=== PATIENT | male | born 1985 ===

== ENCOUNTER 2018-12-31 08:55 | Observation (INO) | payer MEDICAID, OTHER ==
[2018-12-31 09:17] VITALS: BMI 29.2
--- NOTE | 2018-12-31 10:09 | ED PDOC ---
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 lower back pain x 1 day and rt. lower lateral abdomen lump x 1 week with no fall or trauma except been doing heavy lifting at work x 1 week. Rt. lower back pain, no fall or trauma, aching pain, aggravated by movement, had an episode of vomiting about 1 hour ago but resolved, radiating to the rt thigh, no numbness or tingling, no urinary or bowel incontinence or retention. Rt. lower abdomen swelling lump noted this early week after heavy lifting, no fever or chills, no headache or night sweat, eating and drinking well, last bowel movement today, no rash, no other medical o r psychological complaints. Past Medical History - Provider Review Nursing Documentation Reviewed: Yes - Infectious Disease Hx of Infectious Diseases: None - Psychiatric Hx Substance Use: No - Surgical History Hx Appendectomy: Yes - Anesthesia Hx Anesthesia: Yes Hx Anesthesia Reactions: No Family/Social History - Physician Review Nursing Documentation Reviewed: Yes Family/Social History: Unknown Family HX Smoking Status: Current Some Days Smoker Hx Alcohol Use: No Hx Substance Use: No Allergies/Home Meds Allergies/Adverse Reactions: Allergies No Known Allergies Allergy (Verified 12/31/18 09:37) Home Medications: Home Meds Medication Instructions Recorded Confirmed No Known Home Med 12/31/18 12/31/18 Review of Systems - Review of Systems Constitutional: absent: Fatigue, Fevers Eyes: absent: Vision Changes ENT: absent: Hearing Changes Respiratory: absent: SOB, Cough, Sputum, Wheezing Cardiovascular: absent: Chest Pain Gastrointestinal: Abdominal Pain (with lump). absent: Diarrhea, Nausea, Vomiting Musculoskeletal: Back Pain. absent: Arthralgias, Neck Pain, Joint Swelling, Myalgias Skin: absent: Rash, Pruritis Neurological: absent: Headache, Dizziness Psychiatric: absent: Anxiety, Depression, Suicidal Ideation Physical Exam Vital Signs Reviewed: Yes Vital Signs Temp Pulse Resp BP Pulse Ox 12/31/18 09:17 98.1 F 84 18 113/77 100 Temperature: Afebrile Blood Pressure: Normal Pulse: Regular Respiratory Rate: Normal Appearance: Positive for: Well-Appearing, Non-Toxic, Comfortable Pain Distress: Moderate Mental Status: Positive for: Alert and Oriented X 3 - Systems Exam Head: Present: Atraumatic, Normocephalic Pupils: Present: PERRL Extroacular Muscles: Present: EOMI Conjunctiva: Present: Normal Mouth: Present: Moist Mucous Membranes Neck: Present: Normal Range of Motion Respiratory/Chest: Present: Clear to Auscultation, Good Air Exchange. No: Respiratory Distress, Accessory Muscle Use Cardiovascular: Present: Regular Rate and Rhythm, Normal S1, S2. No: Murmurs Abdomen: Present: Tenderness (RLQ), Normal Bowel Sounds, Hernias (RLQ). No: Distention, Peritoneal Signs, Rebound, Guarding, McBurney's Point Tender, Rovsing's Sign Present Back: Present: Normal Inspection, Other (LS spine: +ttp and mild spasm noted on the rt. paraspinal muscle region, no midline tenderness or step off, no cva tenderness, SLR test negative, FROM without limitation but pain with lateral movement, sensation intact, motor 5/5, no saddling gait. ). No: CVA Tenderness, Midline Tenderness, Pain with Leg Raise, Decubitus Ulcer Upper Extremity: Present: Normal Inspection, Normal ROM, NORMAL PULSES, Neurovascularly Intact, Capillary Refill < 2s. No: Cyanosis, Edema, Deformity Lower Extremity: Present: Normal Inspection, NORMAL PULSES, Normal ROM, Neurovascularly Intact, Capillary Refill < 2 s. No: Edema, Deformity Neurological: Present: GCS=15, CN II-XII Intact, Speech Normal, Motor Func Grossly Intact, Normal Cerebellar Funct, Gait Normal, Memory Normal Skin: Present: Warm, Dry, Normal Color. No: Rashes Psychiatric: Present: Alert, Oriented x 3, Normal Insight, Normal Concentration Medical Decision Making ED Course and Treatment: 12/31/18 10:11 -Labs -CT abdomen and pelvis -IV toradol/valium -Observe and reassess 12/31/18 12:46 -Labs are nonsignificant -UA show no UTI -CT abdomen and pelvis There is a ventral abdominal wall hernia along the lateral edge of the right rectus muscle at the level of the iliac crests. The defect measures 2 cm. The herniated fat measures 3 x 5 x 7 cm. There is increased density within the fat which may represent inflammation or ischemic changes. -Pt. feels pain improved but the hernia is nonreducible, -I spoke to the resident buyer Dr. Mag Kumar, discussed about the case and CT result together, she will come evaluate the patient. 12/31/18 13:03 -General surgery team Dr. Mag Kumar, came to evaluated the patient, unable to reduced the hernia completely, recommend admission for surgical procedure. Paging hospitalist for admission now. 12/31/18 13:06 -I spoke to Dr. Kellie Faulkner, discussed about the case/consult, agreed to admit to her service with surgical team on the consult. I ordered the consult already. - RAD Interpretation Radiology Orders: 12/31/18 10:05 ABD & PELVIS IV CONTRAST ONLY [CT] Stat Date of service: 12/31/2018 PROCEDURE: CT Abdomen and Pelvis with contrast HISTORY: RL abdomen lump, hernia? COMPARISON: None. TECHNIQUE: Contrast dose: 100 cc of Omni 350 Radiation dose: Total exam DLP = 460.03 mGy-cm. This CT exam was performed using one or more of the following dose reduction techniques: Automated exposure control, adjustment of the mA and/or kV according to patient size, and/or use of iterative reconstruction technique. FINDINGS: LOWER THORAX: Unremarkable. LIVER: Unremarkable. No gross lesion or ductal dilatation. GALLBLADDER AND BILE DUCTS: Unremarkable. PANCREAS: Unremarkable. No gross lesion or ductal dilatation. SPLEEN: Unremarkable. ADRENALS: Unremarkable. No mass. KIDNEYS AND URETERS: Unremarkable. No hydronephrosis. No solid mass. VASCULATURE: Unremarkable. No aortic aneurysm. No aortic atherosclerotic calcification or mural plaque present. BOWEL: Unremarkable. No obstruction. No gross mural thickening. APPENDIX: Normal appendix. PERITONEUM: Unremarkable. No free fluid. No free air. There is a ventral abdominal wall hernia along the lateral edge of the right rectus muscle at the level of the iliac crests. The defect measures 2 cm. The herniated fat measures 3 x 5 x 7 cm. There is increased density within the fat which may represent inflammation or ischemic changes. LYMPH NODES: Unremarkable. No enlarged lymph nodes. BLADDER: Unremarkable. REPRODUCTIVE: Unremarkable. BONES: No acute fracture. OTHER FINDINGS: None. IMPRESSION: There is a ventral abdominal wall hernia along the lateral edge of the right rectus muscle at the level of the iliac crests. The defect measures 2 cm. The herniated fat measures 3 x 5 x 7 cm. There is increased density within the fat which may represent inflammation or ischemic changes. 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 Disposition/Present on Arrival - Present on Arrival Any Indicators Present on Arrival: No History of DVT/PE: No History of Uncontrolled Diabetes: No Urinary Catheter: No History of Decub. Ulcer: No History Surgical Site Infection Following: None - Disposition Have Diagnosis and Disposition been Completed?: Yes Diagnosis: Low back pain, Abdominal hernia Disposition: HOSPITALIZED Disposition Time: 13:07 Patient Plan: Admission, Observation Patient Problems: Current Active Problems Problem Status Onset Low back pain Acute Abdominal hernia Acute Condition: STABLE Referrals: FAMILY PROVIDER,NO [Primary Care Provider] - Follow up with primary Forms: [employer] ([place])
[2018-12-31 10:46] LABS: BASO # 0.03 K/mm3 (0.0-2.0); BASO % 0.3 % (0.0-3.0); EOS # 0.5 (0.0-0.7); HEMOGLOBIN 16.5 g/dL (14.0-18.0); LYMPH # 1.9 (1.2-3.4); LYMPH % 17.8 % (22.0-35.0); MEAN CELL VOLUME 94.7 fl (80.0-105.0); MEAN CORPUSCULAR HEMOGLOBIN 32.4 pg (25.0-35.0); MEAN CORPUSCULAR HGB CONC 34.2 g/dl (31.0-37.0); MEAN PLATELET VOLUME 8.8 fl (7.0-11.0); MONO # 0.4 (0.1-0.6); MONO % 3.3 % (1.0-6.0); RBC 5.1 10^6/uL (3.5-6.1); RED CELL DISTRIBUTION WIDTH 12.3 % (11.5-14.5); WHITE BLOOD COUNT 10.7 10^3/uL (4.5-11.0)
[2018-12-31 10:48] LABS: URINE BILIRUBIN NEGATIVE (NEGATIVE); URINE BLOOD NEGATIVE (NEGATIVE); URINE GLUCOSE (UA) NEGATIVE (NEGATIVE); URINE LEUKOCYTE ESTERASE NEGATIVE Leu/uL (NEGATIVE); URINE PROTEIN NEGATIVE mg/dL (<30 mg/dL); URINE UROBILINOGEN 0.2 E.U./dL (<1 E.U./dL)
[2018-12-31 10:50] LABS: ALB/GLOB RATIO 1.3 (1.1-1.8); ALBUMIN 4.4 g/dL (3.0-4.8); ALT/SGPT 44 U/L (7-56); AST/SGOT 41 U/L (17-59); BLOOD UREA NITROGEN 13 mg/dL (7-21); CALCIUM 10.1 mg/dL (8.4-10.5); GFR NON-AFRICAN AMERICAN > 60; LIPASE 103 U/L (23-300)
[2018-12-31 10:52] LABS: URINE APPEARANCE CLEAR (CLEAR); URINE COLOR YELLOW (YELLOW)
[2018-12-31] MEDS ORDERED: Iohexol 350 MG/100 ML VIAL ONE (10:57)
--- NOTE | 2018-12-31 12:15 | CT ---
Date of service: 12/31/2018 PROCEDURE: CT Abdomen and Pelvis with contrast HISTORY: RL abdomen lump, hernia? COMPARISON: None. TECHNIQUE: Contrast dose: 100 cc of Omni 350 Radiation dose: Total exam DLP = 460.03 mGy-cm. This CT exam was performed using one or more of the following dose reduction techniques: Automated exposure control, adjustment of the mA and/or kV according to patient size, and/or use of iterative reconstruction technique. FINDINGS: LOWER THORAX: Unremarkable. LIVER: Unremarkable. No gross lesion or ductal dilatation. GALLBLADDER AND BILE DUCTS: Unremarkable. PANCREAS: Unremarkable. No gross lesion or ductal dilatation. SPLEEN: Unremarkable. ADRENALS: Unremarkable. No mass. KIDNEYS AND URETERS: Unremarkable. No hydronephrosis. No solid mass. VASCULATURE: Unremarkable. No aortic aneurysm. No aortic atherosclerotic calcification or mural plaque present. BOWEL: Unremarkable. No obstruction. No gross mural thickening. APPENDIX: Normal appendix. PERITONEUM: Unremarkable. No free fluid. No free air. There is a ventral abdominal wall hernia along the lateral edge of the right rectus muscle at the level of the iliac crests. The defect measures 2 cm. The herniated fat measures 3 x 5 x 7 cm. There is increased density within the fat which may represent inflammation or ischemic changes. LYMPH NODES: Unremarkable. No enlarged lymph nodes. BLADDER: Unremarkable. REPRODUCTIVE: Unremarkable. BONES: No acute fracture. OTHER FINDINGS: None. IMPRESSION: There is a ventral abdominal wall hernia along the lateral edge of the right rectus muscle at the level of the iliac crests. The defect measures 2 cm. The herniated fat measures 3 x 5 x 7 cm. There is increased density within the fat which may represent inflammation or ischemic changes.
--- NOTE | 2018-12-31 13:52 | CP.PCM.HP ---
<Dany Juarez - Last Filed: 12/31/18 13:45> History of Present Illness - History of Present Illness History of Present Illness: Dany Juarez, PGY1 Hospital H&P This is a 33 year old male with PMH of appendectomy in 1995 presenting to the hospital for one week history of right sided abdominal pain and one day history of right lower back pain. 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 Pain worsened today, described as sharp, worsened with movement and associated with nausea and one episode of vomiting NBNB. Patient denies having similar symptoms in past. He has not tried anything for the pain. He denies fevers, headaches, dizziness, CP, SOB, diarrhea, constipation, urinary complaints, numbness and tingling. 12 point ROS noted here, otherwise unremarkable. PMH: denies SH: denies drinking and drugs, has smoked 1 pack per day for more than ten years Sx: appendectomy in 1995 Meds: denies All: denies FH: mom and dad have DM, HTN, HLD Present on Admission - Present on Admission Any Indicators Present on Admission: No Past Patient History - Infectious Disease Hx of Infectious Diseases: None - Past Social History Smoking Status: Heavy Smoker > 10 Cigarettes Daily - PSYCHIATRIC Hx Substance Use: No - SURGICAL HISTORY Hx Appendectomy: Yes - ANESTHESIA Hx Anesthesia: Yes Hx Anesthesia Reactions: No Meds Allergies/Adverse Reactions: Allergies Allergy/AdvReac Type Severity Reaction Status Date / Time No Known Allergies Allergy Verified 12/31/18 09:37 Physical Exam - Constitutional Appears: No Acute Distress - Head Exam Head Exam: ATRAUMATIC, NORMAL INSPECTION - Eye Exam Eye Exam: EOMI Pupil Exam: PERRL - ENT Exam ENT Exam: Mucous Membranes Moist - Neck Exam Neck exam: Positive for: Normal Inspection - Respiratory Exam Respiratory Exam: Clear to Auscultation Bilateral, NORMAL BREATHING PATTERN. absent: Accessory Muscle Use, Wheezes, Respiratory Distress - Cardiovascular Exam Cardiovascular Exam: REGULAR RHYTHM, +S1, +S2 - GI/Abdominal Exam GI & Abdominal Exam: Normal Bowel Sounds. absent: Firm, Guarding, Rigid Additional comments: RLQ protuberance and swelling appreciated. Tenderness appreciated with deep palpation to the RLQ - Extremities Exam Extremities exam: Positive for: normal inspection, pedal pulses present. Negative for: calf tenderness, tenderness - Back Exam Back exam: NORMAL INSPECTION Additional comments: Right sided T-T8 tenderness appreciated - Neurological Exam Neurological exam: Alert, CN II-XII Intact, Oriented x3 - Skin Skin Exam: Normal Color, Warm Results - Vital Signs Recent Vital Signs: Last Vital Signs Temp 98.1 F 12/31/18 09:17 Pulse 84 12/31/18 09:17 Resp 18 12/31/18 09:17 BP 113/77 12/31/18 09:17 Pulse Ox 100 12/31/18 09:17 - Labs Result Diagrams: 12/31/18 10:31 12/31/18 10:31 Labs: Laboratory Results - last 24 hr 12/31/18 12/31/18 12/31/18 10:25 10:31 10:31 WBC 10.7 RBC 5.10 Hgb 16.5 Hct 48.3 MCV 94.7 MCH 32.4 MCHC 34.2 RDW 12.3 Plt Count 298 MPV 8.8 Neut % (Auto) 73.6 H Lymph % (Auto) 17.8 L [place] % (Auto) 3.3 Eos % (Auto) 5.0 Baso % (Auto) 0.3 Lymph # (Auto) 1.9 [place] # (Auto) 0.4 Eos # (Auto) 0.5 Baso # (Auto) 0.03 Absolute Neuts (auto) 7.85 H Sodium 139 Potassium 4.4 Chloride 101 Carbon Dioxide 31 Anion Gap 12 BUN 13 Creatinine 0.9 Est GFR ( Amer) > 60 Est GFR (Non-Af Amer) > 60 Random Glucose 95 Calcium 10.1 Total Bilirubin 0.9 AST 41 ALT 44 Alkaline Phosphatase 61 Total Protein 7.8 Albumin 4.4 Globulin 3.4 Albumin/Globulin Ratio 1.3 Lipase 103 Urine Color Yellow Urine Appearance Clear Urine pH 7.0 Ur Specific [place] 1.015 Urine Protein Negative Urine Glucose (UA) Negative Urine Ketones Negative Urine Blood Negative Urine Nitrate Negative Urine Bilirubin Negative Urine Urobilinogen 0.2 Ur Leukocyte Esterase Negative Assessment & Plan - Assessment and Plan (Free Text) Assessment: This is a 33 year old male with PMH of appendectomy in 1995 presenting to the hospital for one week history of right sided abdominal pain and one day history of right lower back pain. Plan: Ventral abdominal wall hernia: -CTAP 12/31: There is a ventral abdominal wall hernia along the lateral edge of the right rectus muscle at the level of the iliac crests. The defect measures 2 cm. The herniated fat measures 3 x 5 x 7 cm. There is increased density within the fat which may represent inflammation or ischemic changes. -Surgery on consult, Dr. Matias -initial reduction failed -NPO after midnight -flexeril 5mg q8 prn -tylenol 650mg q6 prn -morphine 2 q4 prn Tobacco abuse -nicotine patch DVT PPX -SCD Patient seen and case discussed with attending, Ruben Harley <Chanell Faulkner R - Last Filed: 12/31/18 17:39> Results - Vital Signs Recent Vital Signs: Last Vital Signs Temp 98.1 F 12/31/18 09:17 Pulse 78 12/31/18 15:23 Resp 20 12/31/18 15:23 BP 116/69 12/31/18 15:23 Pulse Ox 99 12/31/18 15:23 - Labs Result Diagrams: 12/31/18 10:31 12/31/18 10:31 Labs: Laboratory Results - last 24 hr 12/31/18 12/31/18 12/31/18 10:25 10:31 10:31 WBC 10.7 RBC 5.10 Hgb 16.5 Hct 48.3 MCV 94.7 MCH 32.4 MCHC 34.2 RDW 12.3 Plt Count 298 MPV 8.8 Neut % (Auto) 73.6 H Lymph % (Auto) 17.8 L [place] % (Auto) 3.3 Eos % (Auto) 5.0 Baso % (Auto) 0.3 Lymph # (Auto) 1.9 [place] # (Auto) 0.4 Eos # (Auto) 0.5 Baso # (Auto) 0.03 Absolute Neuts (auto) 7.85 H Sodium 139 Potassium 4.4 Chloride 101 Carbon Dioxide 31 Anion Gap 12 BUN 13 Creatinine 0.9 Est GFR ( Amer) > 60 Est GFR (Non-Af Amer) > 60 Random Glucose 95 Calcium 10.1 Total Bilirubin 0.9 AST 41 ALT 44 Alkaline Phosphatase 61 Total Protein 7.8 Albumin 4.4 Globulin 3.4 Albumin/Globulin Ratio 1.3 Lipase 103 Urine Color Yellow Urine Appearance Clear Urine pH 7.0 Ur Specific [place] 1.015 Urine Protein Negative Urine Glucose (UA) Negative Urine Ketones Negative Urine Blood Negative Urine Nitrate Negative Urine Bilirubin Negative Urine Urobilinogen 0.2 Ur Leukocyte Esterase Negative Attending/Attestation - Attestation I have personally seen and examined this patient.: Yes I have fully participated in the care of the patient.: Yes I have reviewed all pertinent clinical information: Yes Notes (Text): Patient seen and examined by me with resident at approximately 1:35PM on 12/31/18 in the emergency room. Case including HPI, physical exam, and assessment and plan discussed with resident. Agree with above with following additions/corrections. Patient is a 33-year-old male with past medical history significant for appendicitis status post appendectomy that presented to the emergency room with swelling of the right lower quadrant area and pain in the right lower back radiating to the right thigh. Patient states that the swelling in the right lower quadrant of his abdomen started at the beginning of the week and this progressively gotten worse. He states he also started to have right lower back pain that started yesterday morning and became "unbearable" this morning. 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 Patient states that he used his tool belt and wore around the swollen area to see if that would help but it did not. Patient states that the low back pain is on the right side and is sharp and radiates down to his hamstrings. It is worse with movement. Patient did not try any medications for this at home. Patient states that the right lower quadrant abdominal pain is "squeezing" in nature and is worsened with movement and palpation. Patient states he did have an episode of associated nausea and vomiting this morning. Patient denies any diarrhea or con stipation. No fevers or chills. No headaches or dizziness. No dysuria. No chest pain or shortness of breath. 12 point review of systems reviewed by me. Please see above HPI, all other systems negative. Family history: Mother is alive and has diabetes, hypertension, hyperlipidemia. Alive and also has diabetes, hypertension, and hyperlipidemia. Allergies: NKDA Past medical history: Appendicitis Medications at home: Reviewed and denies taking anything. Physical exam: General: Awake and alert lying in bed in no acute distress. HEENT: Normocephalic, atraumatic. Extraocular muscles intact, pupils equal and reactive, no scleral icterus. Oropharynx is pink and moist. No pharyngeal erythema or exudate appreciated. Neck is supple. Hearing grossly intact. Ears and nose externally unremarkable. Cardiovascular: Regular rhythm. Normal S1, S2. No murmurs, rubs, or gallops appreciated Pulmonary: Normal respiratory effort. No rales or wheezing appreciated. Gastrointestinal: Soft. Positive ventral hernia right abdomen, tender to palpation. Positive bowel sounds all 4 quadrants. No guarding. Well-healed appendectomy scar right lower quadrant. Musculoskeletal: Moves all extremities. No calf tenderness. No edema appreciated. Positive paraspinal muscle tenderness lumbosacral spine on the right Central nervous system: AAOx3. CN 2-12 grossly intact. 5/5 muscle strength all extremities. Dermatologic: Skin warm and dry. Assessment and plan: Patient is a 33-year-old male with past medical history significant for appendicitis status post appendectomy that presented to the emergency room with swelling of the right lower quadrant area and pain in the right lower back radiating to the right thigh. 1. Right ventricle abdominal wall hernia. CT abdomen and pelvis per radiologist showed a ventral abdominal hernia along the lateral edge of the right rectus muscle at the level of the iliac crests, the defect measures 2 cm, herniated fat measures 3 x 5 x 7 cm, there is increased density within the fat which may represent inflammation or ischemic changes. Patient evaluated by surgical team in the emergency room. Unable to reduce hernia. Surgical team will reevaluate to try to reduce hernia versus surgical intervention. IV morphine as needed for pain. 2. Right low back pain likely secondary to right lumbosacral muscle spasm. Will place on Flexeril as needed. 3. Tobacco abuse. Consult on cessation. Placed on nicotine patch. Case was discussed in detail with the patient regarding current diagnosis and treatment plan. All questions answered.
--- NOTE | 2018-12-31 14:25 | CP.PCM.CON ---
History of Present Illness - History of Present Illness History of Present Illness: General Surgery Consult note for Dr. Soto consulted for fat containing hernia at previous appendectomy incision 33 M with no PMH history presenting with 1 days onset pain at RLQ bulge. Patient endorses bulge appeared within the past week. Patient endorses one episode of n/v this am but no longer. Pt denies ARREDONDO, f/c, CP, SOB, stool changes and extremity pain/weakness. Last ate yesterday, last normal BM this AM. PMH: denies SH: denies drinking and drugs, has smoked 1 pack per day for more than ten years Sx: appendectomy in 1995 Meds: denies All: denies FH: mom and dad have DM, HTN, HLD Review of Systems - Review of Systems All systems: reviewed and no additional remarkable complaints except (as per HPI) Past Patient History - Infectious Disease Hx of Infectious Diseases: None - Past Social History Smoking Status: Heavy Smoker > 10 Cigarettes Daily - PSYCHIATRIC Hx Substance Use: No - SURGICAL HISTORY Hx Appendectomy: Yes - ANESTHESIA Hx Anesthesia: Yes Hx Anesthesia Reactions: No Meds Allergies/Adverse Reactions: Allergies Allergy/AdvReac Type Severity Reaction Status Date / Time No Known Allergies Allergy Verified 12/31/18 09:37 - Medications Medications: Current Medications Acetaminophen (Tylenol 325mg Tab) 650 mg PO Q6H PRN PRN Reason: Pain, Mild (1-3) Cyclobenzaprine HCl (Flexeril) 5 mg PO TID PRN PRN Reason: muscle spasm Morphine Sulfate (Morphine) 2 mg IVP Q4H PRN PRN Reason: Pain, moderate (4-7) Nicotine (Nicoderm Cq) 1 patch TD DAILY CORDELL Physical Exam - Constitutional Appears: Well, Non-toxic, No Acute Distress - Head Exam Head Exam: ATRAUMATIC, NORMOCEPHALIC - Eye Exam Eye Exam: EOMI - ENT Exam ENT Exam: Mucous Membranes Moist - Respiratory Exam Respiratory Exam: NORMAL BREATHING PATTERN - Cardiovascular Exam Cardiovascular Exam: REGULAR RHYTHM - GI/Abdominal Exam GI & Abdominal Exam: Guarding (RLQ over hernia), Hernia (tender incisional hernia over previous open appendectomy site RLQ), Soft, Tenderness (RLQ over hernia). absent: Distended, Rebound - Extremities Exam Extremities exam: Negative for: calf tenderness, pedal edema - Neurological Exam Neurological exam: Alert, Oriented x3 - Psychiatric Exam Psychiatric exam: Normal Affect, Normal Mood - Skin Skin Exam: Dry, Intact, Normal Color, Warm Results - Vital Signs Recent Vital Signs: Last Vital Signs Temp 98.1 F 12/31/18 09:17 Pulse 84 12/31/18 09:17 Resp 18 12/31/18 09:17 BP 113/77 12/31/18 09:17 Pulse Ox 100 12/31/18 09:17 - Labs Result Diagrams: 01/02/19 07:20 01/02/19 07:20 Labs: Laboratory Results - last 24 hr 12/31/18 12/31/18 12/31/18 10:25 10:31 10:31 WBC 10.7 RBC 5.10 Hgb 16.5 Hct 48.3 MCV 94.7 MCH 32.4 MCHC 34.2 RDW 12.3 Plt Count 298 MPV 8.8 Neut % (Auto) 73.6 H Lymph % (Auto) 17.8 L [place] % (Auto) 3.3 Eos % (Auto) 5.0 Baso % (Auto) 0.3 Lymph # (Auto) 1.9 [place] # (Auto) 0.4 Eos # (Auto) 0.5 Baso # (Auto) 0.03 Absolute Neuts (auto) 7.85 H Sodium 139 Potassium 4.4 Chloride 101 Carbon Dioxide 31 Anion Gap 12 BUN 13 Creatinine 0.9 Est GFR ( Amer) > 60 Est GFR (Non-Af Amer) > 60 Random Glucose 95 Calcium 10.1 Total Bilirubin 0.9 AST 41 ALT 44 Alkaline Phosphatase 61 Total Protein 7.8 Albumin 4.4 Globulin 3.4 Albumin/Globulin Ratio 1.3 Lipase 103 Urine Color Yellow Urine Appearance Clear Urine pH 7.0 Ur Specific [place] 1.015 Urine Protein Negative Urine Glucose (UA) Negative Urine Ketones Negative Urine Blood Negative Urine Nitrate Negative Urine Bilirubin Negative Urine Urobilinogen 0.2 Ur Leukocyte Esterase Negative Assessment & Plan - Assessment and Plan (Free Text) Assessment: 33 yr old male with no PMH presenting with painful nonreducible fat containing incisional hernia s/p open appendectomy 1995 Plan: - unable to reduce bedside - NPO - pain control - zofran PRN - will likely need operative repair due to nature of patient's work and risk for reherniation and bowel involvement later - will discuss with Dr. Soto, further recs per him Mag Manzano, PGY 1 - Date & Time Date: 12/31/18 Time: 13:15
[2018-12-31] MEDS: Morphine 2 mg/ml ISec IVP PRN ×2 (15:17→23:50)
[2018-12-31 18:39] LABS: INR 1.12; PARTIAL THROMBOPLASTIN TIME 31.5 Seconds (26.9-38.3); PROTHROMBIN TIME 12.4 SECONDS (9.4-12.5)
[2018-12-31] MEDS: Lactated Ringer's 1,000 ML IV SCH (20:36)
[2019-01-01] MEDS: Lactated Ringer's 1,000 ML IV SCH (03:48)
[2019-01-01] MEDS: Morphine 2 mg/ml ISec IVP PRN (04:25)
[2019-01-01 07:22] LABS: BASO # 0.04 K/mm3 (0.0-2.0); BASO % 0.4 % (0.0-3.0); EOS # 0.9 (0.0-0.7); HEMOGLOBIN 16.2 g/dL (14.0-18.0); LYMPH # 2.7 (1.2-3.4); LYMPH % 25.6 % (22.0-35.0); MEAN CELL VOLUME 95.1 fl (80.0-105.0); MEAN CORPUSCULAR HGB CONC 33.6 g/dl (31.0-37.0); MEAN PLATELET VOLUME 8.9 fl (7.0-11.0); MONO # 0.5 (0.1-0.6); MONO % 4.7 % (1.0-6.0); RBC 5.07 10^6/uL (3.5-6.1); RED CELL DISTRIBUTION WIDTH 12.3 % (11.5-14.5); WHITE BLOOD COUNT 10.7 10^3/uL (4.5-11.0)
[2019-01-01 07:44] LABS: BLOOD UREA NITROGEN 16 mg/dL (7-21); CALCIUM 9.2 mg/dL (8.4-10.5); GFR NON-AFRICAN AMERICAN > 60
--- NOTE | 2019-01-01 07:48 | CP.PCM.PCO ---
Physician Communication Note - Physician Communication Note Physician Communication Note: Will plan for OR today, 01/01
--- NOTE | 2019-01-01 08:18 | RAD ---
HISTORY: preop COMPARISON: None available. TECHNIQUE: Chest, one view. FINDINGS: LUNGS: No focal consolidation. Please note that chest x-ray has limited sensitivity for the detection of pulmonary masses. PLEURA: No significant pleural effusion identified. No definite pneumothorax . CARDIOVASCULAR: The cardiomediastinal silhouette appears within normal limits of size. No significant atherosclerotic calcification present. OSSEOUS STRUCTURES: No acute osseous abnormality identified. VISUALIZED UPPER ABDOMEN: Unremarkable. OTHER FINDINGS: None. IMPRESSION: No focal consolidation.
--- NOTE | 2019-01-01 10:22 | CP.PCM.PN ---
<Dany Juarez - Last Filed: 01/01/19 10:18> Subjective - Date & Time of Evaluation Date of Evaluation: 01/01/19 Time of Evaluation: 09:00 - Subjective Subjective: Dany Juarez PGY1 Medicine Progress Note Patient seen and examined at bedside this morning. No acute events overnight reported. Right sided abdominal pain endorsed improved with morphine. Plan for abdominal hernia reduction surgery today. Objective - Vital Signs/Intake and Output Vital Signs (last 24 hours): Temp Pulse Resp BP Pulse Ox 99.2 F 76 18 105/67 98 01/01/19 09:30 01/01/19 09:30 01/01/19 09:30 01/01/19 09:30 01/01/19 09:30 Intake and Output: 01/01/19 01/01/19 06:59 18:59 Intake Total 1080 1000 Balance 1080 1000 - Medications Medications: Current Medications Acetaminophen (Tylenol 325mg Tab) 650 mg PO Q6H PRN PRN Reason: Pain, Mild (1-3) Cyclobenzaprine HCl (Flexeril) 5 mg PO TID PRN PRN Reason: muscle spasm Lactated Ringer's (Lactated Ringer's) 1,000 mls @ 125 mls/hr IV .Q8H CORDELL Last Admin: 01/01/19 03:48 Dose: 125 mls/hr Morphine Sulfate (Morphine) 2 mg IVP Q4H PRN PRN Reason: Pain, moderate (4-7) Last Admin: 01/01/19 04:25 Dose: 2 mg Nicotine (Nicoderm Cq) 1 patch TD DAILY CORDELL Last Admin: 12/31/18 14:39 Dose: 1 patch - Labs Labs: 01/01/19 06:45 01/01/19 06:45 PT 12.4 SECONDS (9.4-12.5) 12/31/18 18:10 INR 1.12 12/31/18 18:10 APTT 31.5 Seconds (26.9-38.3) 12/31/18 18:10 Physical Exam - Constitutional Appears: No Acute Distress - Head Exam Head Exam: ATRAUMATIC, NORMAL INSPECTION - Eye Exam Eye Exam: EOMI Pupil Exam: PERRL - ENT Exam ENT Exam: Mucous Membranes Moist - Neck Exam Neck exam: Positive for: Normal Inspection - Respiratory Exam Respiratory Exam: Clear to Auscultation Bilateral, NORMAL BREATHING PATTERN. absent: Accessory Muscle Use, Wheezes, Respiratory Distress - Cardiovascular Exam Cardiovascular Exam: REGULAR RHYTHM, +S1, +S2 - GI/Abdominal Exam GI & Abdominal Exam: Normal Bowel Sounds. absent: Firm, Guarding, Rigid Additional comments: RLQ protuberance and swelling appreciated. Tenderness appreciated with deep palpation to the RLQ - Extremities Exam Extremities exam: Positive for: normal inspection, pedal pulses present. Negative for: calf tenderness, tenderness - Back Exam Back exam: NORMAL INSPECTION Additional comments: Right sided T-T8 tenderness appreciated - Neurological Exam Neurological exam: Alert, CN II-XII Intact, Oriented x3 - Skin Skin Exam: Normal Color, Warm Assessment and Plan - Assessment and Plan (Free Text) Assessment: This is a 33 year old male with PMH of appendectomy in 1995 presenting to the hospital for one week history of right sided abdominal pain and one day history of right lower back pain. Plan: Ventral abdominal wall hernia: -plan for surgery today -will resume diet as per surgery -CTAP 12/31: There is a ventral abdominal wall hernia along the lateral edge of the right rectus muscle at the level of the iliac crests. The defect measures 2 cm. The herniated fat measures 3 x 5 x 7 cm. There is increased density within the fat which may represent inflammation or ischemic changes. -Surgery on consult, Dr. Matias -initial reduction failed -flexeril 5mg q8 prn -tylenol 650mg q6 prn -morphine 2 q4 prn Tobacco abuse -nicotine patch DVT PPX -SCD Patient seen and case discussed with attending, Ruben Harley <Chanell Faulkner R - Last Filed: 01/02/19 08:18> Objective - Vital Signs/Intake and Output Vital Signs (last 24 hours): Temp Pulse Resp BP Pulse Ox 98 F 87 18 115/75 97 01/01/19 21:50 01/01/19 21:50 01/01/19 21:50 01/01/19 21:50 01/01/19 21:50 Intake and Output: 01/02/19 01/02/19 06:59 18:59 Intake Total 2260 Output Total 2600 Balance -340 - Medications Medications: Current Medications Acetaminophen (Tylenol 325mg Tab) 650 mg PO Q6H PRN PRN Reason: Pain, Mild (1-3) Cyclobenzaprine HCl (Flexeril) 5 mg PO TID PRN PRN Reason: muscle spasm Nicotine (Nicoderm Cq) 1 patch TD DAILY CORDELL Last Admin: 01/01/19 16:21 Dose: 1 patch Oxycodone/Acetaminophen (Percocet 5/325 Mg Tab) 1 tab PO Q4H PRN PRN Reason: Pain, moderate (4-7) Stop: 01/04/19 14:47 Last Admin: 01/02/19 01:01 Dose: 1 tab Oxycodone/Acetaminophen (Percocet 5/325 Mg Tab) 2 tab PO Q6H PRN PRN Reason: Pain, severe (8-10) Stop: 01/04/19 14:51 Last Admin: 01/01/19 21:37 Dose: 2 tab - Labs Labs: 01/01/19 06:45 01/02/19 07:20 PT 12.4 SECONDS (9.4-12.5) 12/31/18 18:10 INR 1.12 12/31/18 18:10 APTT 31.5 Seconds (26.9-38.3) 12/31/18 18:10 Attending/Attestation - Attestation I have personally seen and examined this patient.: Yes I have fully participated in the care of the patient.: Yes I have reviewed all pertinent clinical information, including history, physical exam and plan: Yes Notes (Text): Patient seen and examined by me. Case including HPI, physical exam, and assessment and plan discussed with resident. Agree with above with following additions/corrections. Patient is a 33-year-old male with past medical history significant for appendicitis status post appendectomy that presented to the emergency room with swelling of the right lower quadrant area and pain in the right lower back radia ting to the right thigh. Patient is post op. Complains of abdominal pain. Patient has some nausea. No chest pain or shortness of breath. No headaches or dizziness. No fevers or chills. No dysuria. Physical exam: General: Awake and alert lying in bed in no acute distress. HEENT: Normocephalic, atraumatic. Extraocular muscles intact, pupils equal and reactive, no scleral icterus. Oropharynx is pink and moist. No pharyngeal erythema or exudate appreciated. Neck is supple. Hearing grossly intact. Ears and nose externally unremarkable. Cardiovascular: Regular rhythm. Normal S1, S2. No murmurs, rubs, or gallops appreciated Pulmonary: Normal respiratory effort. No rales or wheezing appreciated. Gastrointestinal: Soft. Distended. Generalized tenderness. Hypoactive bowel sounds all 4 quadrants. No guarding. Musculoskeletal: Moves all extremities. No calf tenderness. No edema appreciated. Central nervous system: AAOx3. Dermatologic: Skin warm and dry. Assessment and plan: Patient is a 33-year-old male with past medical history significant for appendicitis status post appendectomy that presented to the emergency room with swelling of the right lower quadrant area and pain in the right lower back radiating to the right thigh. 1. Right ventricle abdominal wall hernia. Incarcerated hernia. Patient s/p laparoscopic incarcerated ventral hernia repair with mesh. CT abdomen and pelvis per radiologist showed a ventral abdominal hernia along the lateral edge of the right rectus muscle at the level of the iliac crests, the defect measures 2 cm, herniated fat measures 3 x 5 x 7 cm, there is increased density within the fat which may represent inflammation or ischemic changes. 2. Right low back pain likely secondary to right lumbosacral muscle spasm. Will place on Flexeril as needed. 3. Tobacco abuse. Consulted on cessation. Continue nicotine patch. Case was discussed in detail with the patient regarding current diagnosis and treatment plan. All questions answered.
[2019-01-01] MEDS ORDERED: Rocuronium 10 mg/ml (5 ml) ONE (12:24)
[2019-01-01] MEDS ORDERED: Propofol 10 mg/ml Inj (20 ML) ONE (12:24)
[2019-01-01] MEDS ORDERED: Succinylcholine 200 mg/10 ml Inj IV ONE (12:31)
[2019-01-01] MEDS ORDERED: CeFAZolin 1 gm in NS 100ml IVPB ONE (12:50)
[2019-01-01] MEDS ORDERED: Bupivacaine 0.5% Inj(30mL) IJ ONE (13:02)
[2019-01-01] MEDS ORDERED: Glycopyrrolate 0.2 mg/ml (2ml vial) ONE (13:59)
[2019-01-01] MEDS ORDERED: Neostigmine Methylsulfate 3mg/3ml Syringe IV ONE (13:59)
--- NOTE | 2019-01-01 14:43 | PCM.SURG1 ---
Surgeon's Initial Post Op Note - Surgeon's Notes Surgeon: Dr. Soto Integrity Analyst: Esme PGY2; Kali MS3 Type of Anesthesia: General Endo, Local Anesthesia Administered By: Dr. Kidd Pre-Operative Diagnosis: Incarcerated Incisional Ventral Hernia Operative Findings: Incarcerated omental ventral incisional hernia Post-Operative Diagnosis: same Operation Performed: Laparoscopic Incarcerated Ventral Hernia Repair with Mesh Specimen/Specimens Removed: None Estimated Blood Loss: EBL {In ML}: 25 Blood Products Given: N/A Drains Used: No Drains Post-Op Condition: Good Date of Surgery/Procedure: 01/01/19 Time of Surgery/Procedure: 14:43
[2019-01-01] MEDS ORDERED: HYDROmorphone 0.5 mg/0.5 ml ISec IVP PRN (14:44)
[2019-01-01] MEDS ORDERED: Lactated Ringer's 1,000 ML IV SCH (14:45)
[2019-01-01] MEDS: HYDROmorphone 0.5 mg/0.5 ml ISec ONE ×2 (14:53→15:05)
[2019-01-01] MEDS ORDERED: Phenytoin 100 mg/2 ml Inj ONE ×2 (14:59→15:01)
[2019-01-01] MEDS ORDERED: HYDROmorphone 0.5 mg/0.5 ml ISec ONE (14:59)
[2019-01-01] MEDS: Oxycodone/Acetaminophen 5/325 mg Tab PO PRN ×3 (16:21→21:37)
--- NOTE | 2019-01-01 20:49 | CARD ---
APPROVED REPORT Date of service: 01/01/2019 EKG Measurement Heart [id number] <Conclusion> Sinus rhythm with premature Junctional beat with Abberrancy.
[2019-01-01] MEDS: ceFAZolin 1 gm in NS 1 GM/100 ML BAG IVPB SCH (22:16)
[2019-01-02] MEDS: Oxycodone/Acetaminophen 5/325 mg Tab PO PRN (01:01)
[2019-01-02] MEDS: ceFAZolin 1 gm in NS 1 GM/100 ML BAG IVPB SCH (05:46)
--- NOTE | 2019-01-02 07:47 | CP.PCM.DIS ---
<Lexii Leija - Last Filed: 01/02/19 11:36> Provider - Provider Date of Admission: 12/31/18 16:58 Attending physician: Chanell Faulkner DO Primary care physician: NO FAMILY PROVIDER Consults: 12/31/18 12:47 General Surgery Consult Stat Comment: Rt. vental abdominal hernia Consulting Provider: Dean Soto Consulting Physician: Dean Soto Reason for Consult: Rt. vental abdominal hernia Time Spent in preparation of Discharge (in minutes): 45 Hospital Course - Lab Results Lab Results: Most Recent Lab Values WBC 10.7 10^3/uL (4.5-11.0) 01/01/19 06:45 RBC 5.07 10^6/uL (3.5-6.1) 01/01/19 06:45 Hgb 16.2 g/dL (14.0-18.0) 01/01/19 06:45 Hct 48.2 % (42.0-52.0) 01/01/19 06:45 MCV 95.1 fl (80.0-105.0) 01/01/19 06:45 MCH 32.0 pg (25.0-35.0) 01/01/19 06:45 MCHC 33.6 g/dl (31.0-37.0) 01/01/19 06:45 RDW 12.3 % (11.5-14.5) 01/01/19 06:45 Plt Count 302 10^3/uL (120.0-450.0) 01/01/19 06:45 MPV 8.9 fl (7.0-11.0) 01/01/19 06:45 Neut % (Auto) 61.3 % (50.0-68.0) 01/01/19 06:45 Lymph % (Auto) 25.6 % (22.0-35.0) 01/01/19 06:45 Rowan % (Auto) 4.7 % (1.0-6.0) 01/01/19 06:45 Eos % (Auto) 8.0 % (1.5-5.0) H 01/01/19 06:45 Baso % (Auto) 0.4 % (0.0-3.0) 01/01/19 06:45 Lymph # (Auto) 2.7 (1.2-3.4) 01/01/19 06:45 Rowan # (Auto) 0.5 (0.1-0.6) 01/01/19 06:45 Eos # (Auto) 0.9 (0.0-0.7) H 01/01/19 06:45 Baso # (Auto) 0.04 K/mm3 (0.0-2.0) 01/01/19 06:45 Absolute Neuts (auto) 6.56 (1.4-6.5) H 01/01/19 06:45 PT 12.4 SECONDS (9.4-12.5) 12/31/18 18:10 INR 1.12 12/31/18 18:10 APTT 31.5 Seconds (26.9-38.3) 12/31/18 18:10 Sodium 139 mmol/L (132-148) 01/01/19 06:45 Potassium 4.5 mmol/L (3.6-5.0) 01/01/19 06:45 Chloride 103 mmol/L (98-107) 01/01/19 06:45 Carbon Dioxide 30 mmol/L (21-33) 01/01/19 06:45 Anion Gap 11 (10-20) 01/01/19 06:45 BUN 16 mg/dL (7-21) 01/01/19 06:45 Creatinine 1.0 mg/dl (0.8-1.5) 01/01/19 06:45 Est GFR ( Amer) > 60 01/01/19 06:45 Est GFR (Non-Af Amer) > 60 01/01/19 06:45 Random Glucose 98 mg/dL (70-110) 01/01/19 06:45 Calcium 9.2 mg/dL (8.4-10.5) 01/01/19 06:45 Total Bilirubin 0.9 mg/dL (0.2-1.3) 12/31/18 10:31 AST 41 U/L (17-59) 12/31/18 10:31 ALT 44 U/L (7-56) 12/31/18 10:31 Alkaline Phosphatase 61 U/L (38-126) 12/31/18 10:31 Total Protein 7.8 g/dL (5.8-8.3) 12/31/18 10:31 Albumin 4.4 g/dL (3.0-4.8) 12/31/18 10:31 Globulin 3.4 gm/dL 12/31/18 10:31 Albumin/Globulin Ratio 1.3 (1.1-1.8) 12/31/18 10:31 Lipase 103 U/L (23-300) 12/31/18 10:31 Urine Color Yellow (YELLOW) 12/31/18 10:25 Urine Appearance Clear (CLEAR) 12/31/18 10:25 Urine pH 7.0 (4.7-8.0) 12/31/18 10:25 Ur Specific Lacon 1.015 (1.005-1.035) 12/31/18 10:25 Urine Protein Negative mg/dL (<30 mg/dL) 12/31/18 10:25 Urine Glucose (UA) Negative mg/dL (NEGATIVE) 12/31/18 10:25 Urine Ketones Negative mg/dL (NEGATIVE) 12/31/18 10:25 Urine Blood Negative (NEGATIVE) 12/31/18 10:25 Urine Nitrate Negative (NEGATIVE) 12/31/18 10:25 Urine Bilirubin Negative (NEGATIVE) 12/31/18 10:25 Urine Urobilinogen 0.2 E.U./dL (<1 E.U./dL) 12/31/18 10:25 Ur Leukocyte Esterase Negative Lili/uL (NEGATIVE) 12/31/18 10:25 Blood Type O POSITIVE 12/31/18 18:10 Blood Type Confirm O POSITIVE 12/31/18 18:30 Antibody Screen Negative 12/31/18 18:10 BBK History Checked No verified bt 12/31/18 18:10 - Hospital Course Hospital Course: Upon Admission 33yo male PMHx appendectomy 1995 presents with 1 week history of right sided abdominal pain and right lower back pain. Patient works in [employer] with frequent heavy lifting and noted right sided abdominal pain swelling over the last week with worsening pain. He described the pain as sharp, worsened with movement and associated with nausea and one episode of nonbloody nonbilious emesis. Patient denies having similar symptoms in past. He has not tried anything for the pain. He denies fevers, headaches, dizziness, CP, SOB, diarrhea, constipation, urinary complaints, numbness and tingling. 12 point ROS noted here, otherwise unremarkable. Hospital Course Patient was admitted to med/surg for further management. CT abd/pelvis revealed ventral abdominal wall hernia along the lateral edge of the right rectus muscle at the level of the iliac crests. The defect measures 2 cm. The herniated fat measures 3 x 5 x 7 cm. There is increased density within the fat which may represent inflammation or ischemic changes. Surgery Dr. Matias was consulted. After initial reduction failed, patient was deemed surgical candidate. Patient was taken to the OR on 01/01/19 and found to have incarcerated omental ventral incisonal hernia. Patient had a Laparoscopic Incarcerated Ventral Hernia Repair with Mesh which he tolerated well. EBL 25cc. Patient was monitored overnight and the next day. Patient tolerated a regular diet, had a good appetite and tolerated a regular diet, passed flatus, and ambulated. Pain was minimal. On day of discharge, patient was deemed medically optimized for discharge home with outpatient follow up. Upon Discharge Patient was scheduled for an appointment at [facility] on January 14 2:30 PM and was told to bring [facility]. Patient was also instructed to follow up with surgeon Dr. Soto in 10-14 days. Upon discharge patient was instructed that he could return to work but to not carry out any heavy lifting. Patient was given a note for work as requested. For pain control he was instructed to take OTC Ibuprofen as needed. Patient instruceted to take short and quick showers and that he could resume a normal diet. If symptoms returned patient instructed to visit nearest ER. Instructions discussed in detail with patient with nurse at bedside. Patient vocalized understanding and agreement with discharge plan. Please note this is a discharge summary For full hospital course please refer to EMR Discharge Exam - Additional Findings Additional findings: - Constitutional Appears: Well, Non-toxic, No Acute Distress - Head Exam Head Exam: ATRAUMATIC, NORMAL INSPECTION, NORMOCEPHALIC - Eye Exam Eye Exam: EOMI, Normal appearance. absent: Scleral icterus - ENT Exam ENT Exam: Mucous Membranes Moist - Respiratory Exam Respiratory Exam: NORMAL BREATHING PATTERN. absent: Accessory Muscle Use, Respiratory Distress - Cardiovascular Exam Cardiovascular Exam: RRR. absent: JVD - GI/Abdominal Exam GI & Abdominal Exam: Soft. absent: Distended, Guarding, Rigid, Rebound Additional comments: Mild tenderness at LLQ incision site - Extremities Exam Extremities Exam: Normal Inspection. absent: Calf Tenderness - Neurological Exam Neurological Exam: Alert, Awake, Oriented x3 - Psychiatric Exam Psychiatric exam: Normal Affect, Normal Mood - Skin Skin Exam: Dry, Intact, Normal Color, Warm Discharge Plan - Follow Up Plan Condition: STABLE Disposition: HOME/ ROUTINE Instructions: Open Herniorrhaphy (DC), Laparoscopic Herniorrhaphy (DC), Inguinal Hernia (DC), Back Pain (GEN) Additional Instructions: You are being discharged from [facility] You were admitted for a ventral hernia repair surgery with Dr. Soto on 01/01/19. We have scheduled an appointment for you at the [facility] on January 14 2:30 PM. You will be seen by Dr. Aguirre as your primary care doctor. Please bring your [facility] care paperwork with you to your appointment. Please also followup with your surgeon Dr. Soto in 10-14 days. Upon discharge you may return to work but please do not carry out any heavy lifting. For pain control you may take OTC Ibuprofen as needed. You may take short and quick showers and you may resume your normal diet. If symptoms return please visit your nearest Emergency Room Department. Referrals: [facility] at [facility] [Outside] Dean Soto MD [Staff Provider] - FAMILY PROVIDER,NO [Primary Care Provider] - <Chanell Faulkner - Last Filed: 01/02/19 15:15> Provider - Provider Date of Admission: 12/31/18 16:58 Attending physician: Chanell Faulkner DO Primary care physician: JEREMI FAMILY PROVIDER Consults: 12/31/18 12:47 General Surgery Consult Stat Comment: Rt. vental abdominal hernia Consulting Provider: Dean Soto Consulting Physician: Dean Soto Reason for Consult: Rt. vental abdominal hernia Hospital Course - Lab Results Lab Results: Most Recent Lab Values WBC 11.2 10^3/uL (4.5-11.0) H 01/02/19 07:20 RBC 4.38 10^6/uL (3.5-6.1) 01/02/19 07:20 Hgb 14.0 g/dL (14.0-18.0) D 01/02/19 07:20 Hct 41.5 % (42.0-52.0) L 01/02/19 07:20 MCV 94.7 fl (80.0-105.0) 01/02/19 07:20 MCH 32.0 pg (25.0-35.0) 01/02/19 07:20 MCHC 33.7 g/dl (31.0-37.0) 01/02/19 07:20 RDW 12.1 % (11.5-14.5) 01/02/19 07:20 Plt Count 250 10^3/uL (120.0-450.0) 01/02/19 07:20 MPV 8.8 fl (7.0-11.0) 01/02/19 07:20 Neut % (Auto) 68.7 % (50.0-68.0) H 01/02/19 07:20 Lymph % (Auto) 20.0 % (22.0-35.0) L 01/02/19 07:20 Rowan % (Auto) 4.6 % (1.0-6.0) 01/02/19 07:20 Eos % (Auto) 6.5 % (1.5-5.0) H 01/02/19 07:20 Baso % (Auto) 0.2 % (0.0-3.0) 01/02/19 07:20 Lymph # (Auto) 2.2 (1.2-3.4) 01/02/19 07:20 Rowan # (Auto) 0.5 (0.1-0.6) 01/02/19 07:20 Eos # (Auto) 0.7 (0.0-0.7) 01/02/19 07:20 Baso # (Auto) 0.02 K/mm3 (0.0-2.0) 01/02/19 07:20 Absolute Neuts (auto) 7.70 (1.4-6.5) H 01/02/19 07:20 PT 12.4 SECONDS (9.4-12.5) 12/31/18 18:10 INR 1.12 12/31/18 18:10 APTT 31.5 Seconds (26.9-38.3) 12/31/18 18:10 Sodium 138 mmol/L (132-148) 01/02/19 07:20 Potassium 3.8 mmol/L (3.6-5.0) 01/02/19 07:20 Chloride 102 mmol/L (98-107) 01/02/19 07:20 Carbon Dioxide 32 mmol/L (21-33) 01/02/19 07:20 Anion Gap 8 (10-20) L 01/02/19 07:20 BUN 8 mg/dL (7-21) 01/02/19 07:20 Creatinine 1.0 mg/dl (0.8-1.5) 01/02/19 07:20 Est GFR ( Amer) > 60 01/02/19 07:20 Est GFR (Non-Af Amer) > 60 01/02/19 07:20 Random Glucose 80 mg/dL (70-110) 01/02/19 07:20 Calcium 9.2 mg/dL (8.4-10.5) 01/02/19 07:20 Total Bilirubin 0.9 mg/dL (0.2-1.3) 12/31/18 10:31 AST 41 U/L (17-59) 12/31/18 10:31 ALT 44 U/L (7-56) 12/31/18 10:31 Alkaline Phosphatase 61 U/L (38-126) 12/31/18 10:31 Total Protein 7.8 g/dL (5.8-8.3) 12/31/18 10:31 Albumin 4.4 g/dL (3.0-4.8) 12/31/18 10:31 Globulin 3.4 gm/dL 12/31/18 10:31 Albumin/Globulin Ratio 1.3 (1.1-1.8) 12/31/18 10:31 Lipase 103 U/L (23-300) 12/31/18 10:31 Urine Color Yellow (YELLOW) 12/31/18 10:25 Urine Appearance Clear (CLEAR) 12/31/18 10:25 Urine pH 7.0 (4.7-8.0) 12/31/18 10:25 Ur Specific Lacon 1.015 (1.005-1.035) 12/31/18 10:25 Urine Protein Negative mg/dL (<30 mg/dL) 12/31/18 10:25 Urine Glucose (UA) Negative mg/dL (NEGATIVE) 12/31/18 10:25 Urine Ketones Negative mg/dL (NEGATIVE) 12/31/18 10:25 Urine Blood Negative (NEGATIVE) 12/31/18 10:25 Urine Nitrate Negative (NEGATIVE) 12/31/18 10:25 Urine Bilirubin Negative (NEGATIVE) 12/31/18 10:25 Urine Urobilinogen 0.2 E.U./dL (<1 E.U./dL) 12/31/18 10:25 Ur Leukocyte Esterase Negative Lili/uL (NEGATIVE) 12/31/18 10:25 Blood Type O POSITIVE 12/31/18 18:10 Blood Type Confirm O POSITIVE 12/31/18 18:30 Antibody Screen Negative 12/31/18 18:10 BBK History Checked No verified bt 12/31/18 18:10 Attending/Attestation - Attestation I have personally seen and examined this patient.: Yes I have fully participated in the care of the patient.: Yes I have reviewed all pertinent clinical information, including history, physical exam and plan: Yes Notes (Text): Patient seen and examined by me with resident at approximately 9:25AM and prior to discharge on 01/02/19. Case including discharge plan discussed with resident. Agree with above with following additions/corrections. Patient is a 33-year-old male with past medical history significant for appendicitis status post appendectomy that presented to the emergency room with swelling of the right lower quadrant area and pain in the right lower back radiating to the right thigh. Please see H&P for full details. Patient was found to have right ventral incarcerated abdominal hernia, abdominal pain, right low back pain, and tobacco abuse. CT abdomen and pelvis per radiologist showed a ventral abdominal hernia along the lateral edge of the right rectus muscle at the level of the iliac crests, the defect measures 2 cm, herniated fat measures 3 x 5 x 7 cm, there is increased density within the fat which may represent inflammation or ischemic changes. Patient had laparoscopic incarcerated ventral hernia with mesh. Patient is tolerating diet and having flatus. Patient was ambulating well. Was cleared for discharge by surgical team. Patient is also complaining of right low back pain on admission which resolved post surgery. Patient was counseled at length on tobacco cessation. Patient was feeling much better and asking to go home. Patient was discharged home. On day of discharge, patient stated he was feeling much better. Patient with some generalized abdominal pain but patient stated it was tolerable. Patient was having flatus. No nausea or vomiting. Tolerating diet. No shortness of breath. No chest pain or palpitations. No lightheadedness or dizziness. No headaches or change in vision. No fevers or chills. No dysuria. Physical exam: General: Awake and alert lying in bed in no acute distress. HEENT: Normocephalic, atraumatic. Extraocular muscles intact, pupils equal and reactive, no scleral icterus. Oropharynx is pink and moist. No pharyngeal erythema or exudate appreciated. Neck is supple. Hearing grossly intact. Ears and nose externally unremarkable. Cardiovascular: Regular rhythm. Normal S1, S2. No murmurs, rubs, or gallops appreciated Pulmonary: Normal respiratory effort. No rales or wheezing appreciated. Gastrointestinal: Soft. Mild distention. Generalized tenderness. Positive bowel sounds all 4 quadrants. No guarding. Incision sites clean, dry, and intact. Musculoskeletal: Moves all extremities. No calf tenderness. No edema appreciated. Central nervous system: AAOx3. CN2-12 grossly intact. Dermatologic: Skin warm and dry. Please see chart for full details. Follow up instructions: Patient to follow-up at [facility] on January 14 at 2:30 PM. Patient to follow up with surgeon inm 10-14 days. No heavy lifting. Can use Ibuprofen if needed. All instructions explained to the patient in detail. Patient both understands and agrees to all instructions. Written instructions also given. Time spent in discharging the patient including chart review, medication reconciliation, discussion with the patient, biomedical manager, consultants, and nursing staff was approximately 40 minutes.
[2019-01-02 08:03] LABS: BASO # 0.02 K/mm3 (0.0-2.0); BASO % 0.2 % (0.0-3.0); EOS # 0.7 (0.0-0.7); EOS % 6.5 % (1.5-5.0); LYMPH # 2.2 (1.2-3.4); MEAN CELL VOLUME 94.7 fl (80.0-105.0); MEAN CORPUSCULAR HGB CONC 33.7 g/dl (31.0-37.0); MEAN PLATELET VOLUME 8.8 fl (7.0-11.0); MONO # 0.5 (0.1-0.6); MONO % 4.6 % (1.0-6.0); RBC 4.38 10^6/uL (3.5-6.1); RED CELL DISTRIBUTION WIDTH 12.1 % (11.5-14.5); WHITE BLOOD COUNT 11.2 10^3/uL (4.5-11.0)
[2019-01-02 08:05] LABS: BLOOD UREA NITROGEN 8 mg/dL (7-21); CALCIUM 9.2 mg/dL (8.4-10.5); GFR NON-AFRICAN AMERICAN > 60
[2019-01-02 08:21] VITALS: BP 107/70; PULSE 81; RESP 16; TEMP 97.9; O2SAT 98
--- NOTE | 2019-01-02 10:05 | CP.PCM.PN ---
Subjective - Date & Time of Evaluation Date of Evaluation: 01/02/19 Time of Evaluation: 06:40 - Subjective Subjective: Surgery Progress note. Dr. Soto Pt seen and examined at bedside. No acute events overnight. No N/V/D. Tolerating liquids. Pain tolerated. No new complaints. Objective - Vital Signs/Intake and Output Vital Signs (last 24 hours): Temp Pulse Resp BP Pulse Ox 97.9 F 81 16 107/70 98 01/02/19 06:00 01/02/19 06:00 01/02/19 06:00 01/02/19 06:00 01/02/19 06:00 Intake and Output: 01/02/19 01/02/19 06:59 18:59 Intake Total 2260 Output Total 2600 Balance -340 - Medications Medications: Current Medications Acetaminophen (Tylenol 325mg Tab) 650 mg PO Q6H PRN PRN Reason: Pain, Mild (1-3) Cyclobenzaprine HCl (Flexeril) 5 mg PO TID PRN PRN Reason: muscle spasm Nicotine (Nicoderm Cq) 1 patch TD DAILY CORDELL Last Admin: 01/02/19 09:26 Dose: 1 patch Oxycodone/Acetaminophen (Percocet 5/325 Mg Tab) 1 tab PO Q4H PRN PRN Reason: Pain, moderate (4-7) Stop: 01/04/19 14:47 Last Admin: 01/02/19 01:01 Dose: 1 tab Oxycodone/Acetaminophen (Percocet 5/325 Mg Tab) 2 tab PO Q6H PRN PRN Reason: Pain, severe (8-10) Stop: 01/04/19 14:51 Last Admin: 01/01/19 21:37 Dose: 2 tab - Labs Labs: 01/02/19 07:20 01/02/19 07:20 PT 12.4 SECONDS (9.4-12.5) 12/31/18 18:10 INR 1.12 12/31/18 18:10 APTT 31.5 Seconds (26.9-38.3) 12/31/18 18:10 - Constitutional Appears: Well, Non-toxic, No Acute Distress - Head Exam Head Exam: ATRAUMATIC, NORMAL INSPECTION, NORMOCEPHALIC - Eye Exam Eye Exam: EOMI, Normal appearance. absent: Scleral icterus - ENT Exam ENT Exam: Mucous Membranes Moist - Respiratory Exam Respiratory Exam: NORMAL BREATHING PATTERN. absent: Accessory Muscle Use, Respiratory Distress - Cardiovascular Exam Cardiovascular Exam: RRR. absent: JVD - GI/Abdominal Exam GI & Abdominal Exam: Soft. absent: Distended, Guarding, Rigid, Rebound Additional comments: Mild tenderness at LLQ incision site - Extremities Exam Extremities Exam: Normal Inspection. absent: Calf Tenderness - Neurological Exam Neurological Exam: Alert, Awake, Oriented x3 - Psychiatric Exam Psychiatric exam: Normal Affect, Normal Mood - Skin Skin Exam: Dry, Intact, Normal Color, Warm Assessment and Plan - Assessment and Plan (Free Text) Assessment: 33yo M s/p incarcerated LLQ incisional ventral hernia repair with mesh. POD 1 Plan: - Regular diet - cleared for discharge home from surgery standpoint - discussed post-op instructions at length with patient, who understands and agrees. Will follow up with Dr. Soto in office - Do not pick at dermabond, allow to come off on its own - No heavy lifting - Pain control: Ibuprofen or Ultram. No Ultram if working. May resume work with light duty when pain is controlled - Okay to shower - f/u with Brittany in office in 10 days. Call for appointment - No diet restrictions Further recs as per Dr. Brittany Victoria PGY2 surgery
--- NOTE | 2019-01-03 12:49 | OP ---
PROCEDURE DATE: 01/01/2019 PREOPERATIVE DIAGNOSIS: Incarcerated incisional ventral hernia. POSTOPERATIVE DIAGNOSIS: Incarcerated incisional ventral hernia. OPERATION PERFORMED: Laparoscopic incarcerated ventral hernia repair with mesh. OPERATIVE FINDINGS: Incarcerated omental fat within the ventral incisional hernia. PRIMARY SURGEON: Dean Soto MD ASSISTANTS: Rupesh Victoria, PGY-2; medical student [employer]3 TYPE OF ANESTHESIA: General endotracheal and local. ANESTHESIA ADMINISTERED BY: Jez Kidd MD SPECIMENS: None. ESTIMATED BLOOD LOSS: 25 mL. BLOOD PRODUCTS: No intraoperative blood products were given. DRAINS: None. POSTOPERATIVE CONDITION: Good. DATE OF SURGERY: 01/01/2019. TIME OF SURGERY: 14:43. INDICATIONS: The patient is a 33-year-old male with history of an open appendectomy with a right lower quadrant incision. The patient has had a right incarcerated incisional ventral hernia for many years and has been having increasing abdominal pain at the site. Preoperatively, the hernia was unable to be reduced. The patient consented to undergo laparoscopic repair with mesh. The risks, benefits, and the risks of the procedure were discussed with at length with the patient preoperatively and written consent was obtained and witnessed by the nursing staff. The patient does not have any other significant medical history. DESCRIPTION OF PROCEDURE: The patient was brought to the operating room with the anesthesia team and general endotracheal tube was placed and general anesthesia was given to the patient. The patient was placed supine on the operating room table and draped and prepped in the usual sterile fashion using chlorhexidine prep. A 10-mm left upper quadrant incision was made after local anesthesia. Incision was entered using direct Visiport technique. Using a 10-mm scope, under direct visualization, all the layers of the abdominal wall were entered until the peritoneum was encountered and entered without any injury. The obturator was removed and the camera was inserted. Pneumoperitoneum was obtained with open pressures of 2 mmHg. The entire abdomen was inspected and was free of any injury to surrounding bowel. No bleeding was noted. A second 5-mm port was placed in the left lower quadrant under direct visualization. The trocar was inserted without any injury to bowel. The entire abdomen was again inspected and was noted to be free of any intraabdominal injuries. No bleeding was noted. The hernia in the right lower quadrant was noted to be containing omental fat. Graspers were used to place the omental fat on traction while pressure was placed on the incarcerated ventral hernia site over the abdominal wall. After difficult and extensive manipulation, the incarcerated omental fat was able to be reduced. Electrocautery was used at multiple different times over the small spots of bleeding on the omentum, which was noted during reduction of the ventral hernia. Once the entire hernia and its contents were reduced, the entire abdominal cavity was noted and the areas of omental bleeding were electrocauterized to obtain hemostasis. The entire abdominal cavity was lavaged with normal saline until adequate hemostasis was achieved and noted. A 9-cm Versatex monofilament mesh was used for planned closure of the ventral hernia. A single Vicryl 3-0 suture was placed in the center of the circular mesh. The rough part of the mesh was rolled on the inside and placed intra-abdominally via the 10-mm port. A mesh was unrolled without any difficulties. The free end of the Vicryl suture was grasped through a needle insertion at the site of the incarcerated ventral hernia and pulled up superiorly to cover the entire hernia. Multiple tacks were used to fixate the mesh through the anterior abdominal wall into rows of Vicryl tacks. Mesh was noted to be free of any tension and laid over the abdominal wall in a smooth single-layer fashion. The entire incisional hernia was noted to be covered by the mesh with far overlap on both sides of the hernia. The entire abdominal cavity was explored again to note good hemostasis. Irrigation was again used and noted to be clear. The pneumoperitoneum was removed and evacuated. The 5-mm port was removed under direct vision. No trocar bleeding was noted. The 10-mm port was also removed and good hemostasis was noted. Both port sites were closed with 3-0 Vicryl in the subcu and 4-0 Monocryl in the subcuticular running fashion. Dermabond was placed over both incisions. The patient was moved back to the stretcher. All needle and sponge counts were declared correct by the operating room staff. The patient was taken back to the postoperative care unit in stable condition. No immediate complications were noted. Rupesh Victoria DO Dean Soto MD [facility] # [id number]
== END 2019-01-02 11:50 | disposition home or self-care (01) ==
LOC: ED 08:55 → ERH 16:58 → 5RNO 20:16
PROVIDERS: ADMIT Hospitalist; ATTEND Hospitalist
DX: K43.0 Incisional hernia with obstruction, without gangrene (principal); Z83.3 Family history of diabetes mellitus; Z82.49 Family history of ischemic heart disease and other diseases of the circulatory system; Z83.2 Family history of diseases of the blood and blood-forming organs and certain disorders involving the immune mechanism; Z72.0 Tobacco use; Z90.49 Acquired absence of other specified parts of digestive tract; M62.838 Other muscle spasm
CPT/HCPCS: 36415; 49655; 71045; 74177; 80048; 80053; 81003; 83690; 85025; 85610; 85730; 86850; 86900; 93005; 96374; 99284; G0378; J0131; J0330; J0690; J1170; J1885; J2001; J2270; J2704; J2710; J3010; J7120; Q9967